=== PATIENT | male | born 1995 | race Caucasian/White ===

== ENCOUNTER 2020-10-23 22:33 | Emergency (ER) | payer BC ==
[~2020-10-23 22:33] MED LIST: AMOXICILLIN500 MG PO; FLEXERIL 10 MG10 MG PO; FLOMAX 0.4 MG0.4 MG PO; IBUPROFEN800 MG PO; NORCO 7.5-3251 EACH PO; TORADOL 10 MG T10 MG PO; ZOFRAN ODT 4 MG4 MG PO
== END 2020-10-23 23:00 | disposition left against medical advice (07) ==
LOC: ER1 22:33
DX: Z53.21 Procedure and treatment not carried out due to patient leaving prior to being seen by health care provider (principal)

== ENCOUNTER → 2021-09-20 | Outpatient (CLI) | payer BC | LOC: RAD 07:46 | DX: R13.10 Dysphagia, unspecified (principal); R93.3 Abnormal findings on diagnostic imaging of other parts of digestive tract | CPT/HCPCS: 74221 ==